=== PATIENT | male | born 1950 | race Caucasian/White ===

== ENCOUNTER 2017-12-29 11:06 | Observation (INO) | payer MEDICARE ==
[~2017-12-29] VITALS: Ht 177.8 cm; Wt 78.8 kg
[~2017-12-29 11:06] MED LIST: ASPI-496 PO; ATEN50TA41 PO; FLUO40CA2 PO; MELO7.5T31 PO; PANT40TA5 PO; PRAV40TA2 PO; TOPI50TA8 PO
[2017-12-29 11:56] LABS: BASOPHILS # (AUTO) 0.04 x10^3/uL (0-0.1); BASOPHILS % (AUTO) 0 % (0-1); EOSINOPHILS # (AUTO) 0.17 x10^3/uL (0-0.4); EOSINOPHILS % (AUTO) 2 % (1-7); LYMPHOCYTES # (AUTO) 3.13 x10^3/uL (1-3.4); LYMPHOCYTES % (AUTO) 36 % (22-44); MD NO; MEAN CORPUSCULAR HEMOGLOBIN 31.2 pg (27.5-34.5); MEAN CORPUSCULAR VOLUME 91.8 fL (81-97); MEAN PLATELET VOLUME 8.9 fL (7.4-10.4); MONOCYTES # (AUTO) 0.79 x10^3/uL (0.2-0.8); MONOCYTES % (AUTO) 9 % (2-9); NEUTROPHILS # (AUTO) 4.53 x10^3/uL (1.8-6.8); NEUTROPHILS % (AUTO) 52 % (42-75); PLATELET COUNT 184 x10^3/uL (130-400); RED BLOOD COUNT 5.05 x10^6/uL (4.38-5.82); RED CELL DISTRIBUTION WIDTH 14.3 % (9.4-14.8)
[2017-12-29] MEDS ORDERED: ASPIRIN 81 MG TABLET CHEW PO ONE (12:00)
[2017-12-29] MEDS ORDERED: SODIUM CHLORIDE FLUSH 10ML SYR IVF ONE (12:00)
[2017-12-29 12:08] LABS: ALANINE AMINOTRANSFERASE 35 U/L (12-78); ALBUMIN 3.8 g/dL (3.4-5.0); ANION GAP 6 mmol/L (5-15); CALCIUM 8.9 mg/dL (8.5-10.1); CHLORIDE 111 mmol/L (98-107); CREATININE 1.05 mg/dL (0.7-1.3)
[2017-12-29 12:12] LABS: ALKALINE PHOSPHATASE 107 U/L (45-117); BILIRUBIN,TOTAL 0.5 mg/dL (0.2-1.0); TOTAL PROTEIN 7.5 g/dL (6.4-8.2); TROPONIN I < 0.015 ng/mL (0.000-0.045)
[2017-12-29] MEDS ORDERED: ASPIRIN 81 MG TABLET CHEW ONE (12:30)
[2017-12-29] MEDS ORDERED: LABETALOL 5MG/ML, 20ML IVPush PRN (15:00)
[2017-12-29] MEDS ORDERED: NITROGLYCERIN 0.4 MG BOTTLE (25 TABS) SL PRN (15:00)
[2017-12-29] MEDS ORDERED: ONDANSETRON ODT 4 MG PO PRN (15:00)
[2017-12-29] MEDS ORDERED: ONDANSETRON 2MG/ML, 2ML IVPush PRN (15:00)
[2017-12-29] MEDS ORDERED: ENALAPRILAT 1.25 MG/ML, 2ML IVPush PRN (15:00)
[2017-12-29 17:41] VITALS: BP 129/78
[2017-12-29 18:54] LABS: TROPONIN I < 0.015 ng/mL (0.000-0.045)
[2017-12-29 19:11] VITALS: BP 128/71
[2017-12-29] MEDS: TOPIRAMATE 25 MG TABLET PO SCH (20:04)
[2017-12-29] MEDS: MELOXICAM 15 MG TABLET PO SCH (20:04)
[2017-12-29] MEDS ORDERED: PRAVASTATIN 40 MG TABLET PO SCH (21:00)
[2017-12-29 21:40] LABS: MICROSCOPIC AUTO
[2017-12-30 00:45] VITALS: BP 114/70
[2017-12-30 05:58] LABS: ALBUMIN 3.6 g/dL (3.4-5.0); ANION GAP 9 mmol/L (5-15); BASOPHILS # (AUTO) 0.02 x10^3/uL (0-0.1); BASOPHILS % (AUTO) 0 % (0-1); CALCIUM 9.4 mg/dL (8.5-10.1); CHLORIDE 114 mmol/L (98-107); EOSINOPHILS # (AUTO) 0.16 x10^3/uL (0-0.4); EOSINOPHILS % (AUTO) 2 % (1-7); LYMPHOCYTES # (AUTO) 2.67 x10^3/uL (1-3.4); LYMPHOCYTES % (AUTO) 34 % (22-44); MD NO; MEAN CORPUSCULAR VOLUME 91.3 fL (81-97); MEAN PLATELET VOLUME 9.1 fL (7.4-10.4); MONOCYTES # (AUTO) 0.63 x10^3/uL (0.2-0.8); MONOCYTES % (AUTO) 8 % (2-9); NEUTROPHILS # (AUTO) 4.42 x10^3/uL (1.8-6.8); NEUTROPHILS % (AUTO) 56 % (42-75); PLATELET COUNT 165 x10^3/uL (130-400); RED BLOOD COUNT 4.79 x10^6/uL (4.38-5.82); RED CELL DISTRIBUTION WIDTH 14.3 % (9.4-14.8)
[2017-12-30 06:02] LABS: CREATININE 1.08 mg/dL (0.7-1.3)
[2017-12-30 06:03] LABS: ALANINE AMINOTRANSFERASE 30 U/L (12-78); ALKALINE PHOSPHATASE 105 U/L (45-117); BILIRUBIN,TOTAL 0.4 mg/dL (0.2-1.0); CHOL/HDL RATIO 3.8; CHOLESTEROL, TOTAL 141 mg/dL (140-239); HDL CHOL % 26 % (26-37); HDL CHOLESTEROL (DIRECT) 37 mg/dL (40-60); LDL CHOLESTEROL,CALCULATED 45 mg/dL (54-169); LDL/HDL RATIO 1.2 (0.5-3.0); TOTAL PROTEIN 6.8 g/dL (6.4-8.2); TRIGLYCERIDES 294 mg/dL (50-200); VLDL CHOLESTEROL 59 mg/dL (0-25)
[2017-12-30 08:10] VITALS: BP 137/77
[2017-12-30] MEDS ORDERED: ASPIRIN 81 MG TABLET EC PO SCH (09:00)
[2017-12-30] MEDS ORDERED: ATENOLOL 50 MG TABLET PO SCH (09:00)
[2017-12-30] MEDS ORDERED: FLUOXETINE HCL 20 MG CAPSULE PO SCH (09:00)
[2017-12-30] MEDS ORDERED: PANTOPROZOLE 40MG TABLET PO SCH (09:00)
[2017-12-30] MEDS: TOPIRAMATE 25 MG TABLET PO SCH (10:34)
[2017-12-30] MEDS: MELOXICAM 15 MG TABLET PO SCH (10:34)
[2017-12-30 10:36] VITALS: BP 134/80
== END 2017-12-30 15:00 | disposition home or self-care (01) ==
LOC: ED 12:55 → UNDOADMIN 14:01 → EDIP 14:01 → INTOOBSV 14:01 → 5SO 17:26
PROVIDERS: ADMIT Hospitalist; ATTEND Hospitalist
DX: R00.2 Palpitations (principal); I10 Essential (primary) hypertension; E78.5 Hyperlipidemia, unspecified; E16.2 Hypoglycemia, unspecified; Z79.82 Long term (current) use of aspirin; Z87.442 Personal history of urinary calculi; Z87.891 Personal history of nicotine dependence
CPT/HCPCS: 36415; 71045; 78452; 80053; 80061; 81001; 83735; 83880; 84100; 84443; 84484; 85025; 85379; 93005; 93017; 99285; A9502; C9898; G0378

== ENCOUNTER → 2018-03-26 | Outpatient (CLI) | payer MEDICARE ==
[2018-03-26 11:44] LABS: BASOPHILS # (AUTO) 0.07 x10^3/uL (0-0.1); BASOPHILS % (AUTO) 1 % (0-1); EOSINOPHILS # (AUTO) 0.15 x10^3/uL (0-0.4); EOSINOPHILS % (AUTO) 2 % (1-7); LYMPHOCYTES # (AUTO) 3.29 x10^3/uL (1-3.4); LYMPHOCYTES % (AUTO) 37 % (22-44); MD NO; MEAN CORPUSCULAR HEMOGLOBIN 31.1 pg (27.5-34.5); MEAN CORPUSCULAR HGB CONC 33.7 g/dL (33.2-36.2); MEAN CORPUSCULAR VOLUME 92.3 fL (81-97); MEAN PLATELET VOLUME 8.7 fL (7.4-10.4); MONOCYTES # (AUTO) 0.56 x10^3/uL (0.2-0.8); MONOCYTES % (AUTO) 6 % (2-9); NEUTROPHILS # (AUTO) 4.83 x10^3/uL (1.8-6.8); NEUTROPHILS % (AUTO) 54 % (42-75); PLATELET COUNT 189 x10^3/uL (130-400); RED BLOOD COUNT 5.04 x10^6/uL (4.38-5.82); RED CELL DISTRIBUTION WIDTH 14.2 % (9.4-14.8)
[2018-03-26 11:51] LABS: INTERNATIONAL NORMALIZED RATIO 1.04 (0.93-1.1); PROTHROMBIN TIME 10.7 Seconds (9.6-11.5)
[2018-03-26 11:54] LABS: ALBUMIN 3.9 g/dL (3.4-5.0); ANION GAP 7 mmol/L (5-15); CHLORIDE 110 mmol/L (98-107)
[2018-03-26 11:59] LABS: ALANINE AMINOTRANSFERASE 32 U/L (12-78); ALKALINE PHOSPHATASE 118 U/L (45-117); BILIRUBIN,TOTAL 0.7 mg/dL (0.2-1.0); CREATININE 1.04 mg/dL (0.7-1.3); TOTAL PROTEIN 7.7 g/dL (6.4-8.2)
== END ==
LOC: STAR 10:25
PROVIDERS: ATTEND Neurological Surgery
DX: Z01.818 Encounter for other preprocedural examination (principal); R94.31 Abnormal electrocardiogram [ECG] [EKG]; M47.812 Spondylosis without myelopathy or radiculopathy, cervical region
CPT/HCPCS: 36415; 80053; 85025; 85610; 85730; 93005

== ENCOUNTER 2018-04-05 06:15 | Inpatient (IN) | payer MEDICARE ==
[2018-03-26 11:43] VITALS: BP 143/81
[~2018-04-05] VITALS: Ht 177.8 cm; Wt 80.0 kg
[2018-04-05] MEDS ORDERED: LACTATED RINGERS 1,000 ML IV SCH (06:54)
[2018-04-05] MEDS ORDERED: ACETAMINOPHEN 500 MG TABLET PO ONE (07:30)
[2018-04-05] MEDS ORDERED: GABAPENTIN 300 MG CAPSULE PO ONE (07:30)
[2018-04-05] MEDS ORDERED: OxyconTIN ER 10 MG TAB.ER PO ONE (07:30)
[2018-04-05] MEDS ORDERED: MIDAZOLAM 1 MG/ML, 2ML ONE (08:20)
[2018-04-05] MEDS ORDERED: FENTANYL PF 250 MCG/5ML ONE (08:20)
[2018-04-05] MEDS ORDERED: ROCURONIUM 10MG/ML,5ML ONE (08:21)
[2018-04-05] MEDS ORDERED: PROPOFOL 10 MG/ML, 20ML ONE (08:22)
[2018-04-05] MEDS ORDERED: CEFAZOLIN 1,000 MG ONE ×2 (08:23)
[2018-04-05] MEDS ORDERED: WATER-INJECTION,STERILE 10 ML IV ONE (08:23)
[2018-04-05] MEDS ORDERED: NEOSTIGMINE 1 MG/ML, 10ML ONE (09:02)
[2018-04-05] MEDS ORDERED: GLYCOPYRROLATE 0.4 MG/2 ML, 2ML ONE (09:03)
[2018-04-05] MEDS ORDERED: BACITRACIN 50,000 UNIT ONE (09:38)
[2018-04-05] MEDS ORDERED: THROMBIN 5,000 UNIT VIAL TP ONE (09:38)
[2018-04-05] MEDS ORDERED: EPINEPHRINE 1 MG/ML, 1ML ONE (09:38)
[2018-04-05] MEDS ORDERED: BUPIVACAINE 0.25% ONE (09:38)
[2018-04-05] MEDS ORDERED: BACITRACIN OINT 500U/GM, 15 GM ONE (09:38)
[2018-04-05] MEDS ORDERED: MORPHINE SULFATE 4 MG/ML, 1ML IVPush PRN (10:00)
[2018-04-05] MEDS ORDERED: PROMETHAZINE 12.5 MG SUPP PR PRN (10:00)
[2018-04-05] MEDS ORDERED: FENTANYL PF 100 MCG/2ML IV PRN (10:00)
[2018-04-05] MEDS ORDERED: PROMETHAZINE 25 MG SUPP PR PRN (10:00)
[2018-04-05] MEDS ORDERED: hydrALAzine 20 MG/ML, 1ML IV PRN (10:00)
[2018-04-05] MEDS ORDERED: LABETALOL 5MG/ML, 20ML IV PRN (10:00)
[2018-04-05] MEDS ORDERED: MEPERIDINE/PF 25MG/0.5ML IVPush PRN (10:00)
[2018-04-05] MEDS ORDERED: OXYcodone 5 MG/5 ML ORAL.SOL UDC PO PRN (10:00)
[2018-04-05] MEDS ORDERED: ONDANSETRON ODT 8 MG PO PRN (10:00)
[2018-04-05] MEDS ORDERED: HYDROmorphone 2 MG/ML, 1ML IV PRN (10:00)
[2018-04-05] MEDS ORDERED: PROMETHAZINE 25 MG/ML, 1ML IV PRN (10:00)
[2018-04-05] MEDS ORDERED: PHENYLEPHRINE 10 MG/ML ONE (10:16)
[2018-04-05] MEDS ORDERED: morphine SULFATE 10 MG/ML, 1ML IVPush PRN (10:30)
[2018-04-05] MEDS ORDERED: CEFAZOLIN 1,000 MG IV SCH (10:30)
[2018-04-05] MEDS ORDERED: PHARMACY MAY ADJ FOR RENAL FX MC PRN (10:30)
[2018-04-05] MEDS ORDERED: BUPIVACAINE/PF 0.25% INFIL ONE (11:07)
[2018-04-05] MEDS: DIAZEPAM 5 MG TABLET PO PRN ×2 (13:22→20:48)
[2018-04-05 13:57] VITALS: BP 142/80
[2018-04-05] MEDS: OXYcodone/APAP 5/325MG TABLET PO PRN ×3 (15:05→23:27)
[2018-04-05] MEDS: NS + 20MEQ KCL 1,000 ML IV SCH (15:56)
[2018-04-05] MEDS: CEFAZOLIN PMX 1GM/50ML 50 ML IVPB SCH ×2 (15:56→23:30)
[2018-04-05 19:03] VITALS: BP 142/86
[2018-04-05] MEDS: TOPIRAMATE 25 MG TABLET PO SCH (20:46)
[2018-04-05] MEDS ORDERED: PRAVASTATIN 40 MG TABLET PO SCH (21:00)
[2018-04-06 01:01] VITALS: BP 145/84
[2018-04-06] MEDS: OXYcodone/APAP 5/325MG TABLET PO PRN ×2 (04:12→08:21)
[2018-04-06 04:19] VITALS: BP 128/75
[2018-04-06] MEDS: NS + 20MEQ KCL 1,000 ML IV SCH (06:00)
[2018-04-06 07:56] VITALS: BP 132/76
[2018-04-06] MEDS: CEFAZOLIN PMX 1GM/50ML 50 ML IVPB SCH (08:21)
[2018-04-06] MEDS: TOPIRAMATE 25 MG TABLET PO SCH (08:22)
[2018-04-06] MEDS ORDERED: TIZA4TAB9 PO (08:34)
[2018-04-06] MEDS ORDERED: OXYC-302 PO (08:34)
[2018-04-06] MEDS ORDERED: PANTOPROZOLE 40MG TABLET PO SCH (09:00)
[2018-04-06] MEDS ORDERED: FLUOXETINE HCL 20 MG CAPSULE PO SCH (09:00)
[2018-04-06] MEDS ORDERED: ATENOLOL 50 MG TABLET PO SCH (09:00)
== END 2018-04-06 10:32 | disposition home or self-care (01) | DRG 472 ==
LOC: OUT 06:15 → ORIP 10:04 → 4NOR 13:23 → DCLOUNGE 04-06 10:14
PROVIDERS: ADMIT Neurological Surgery; ATTEND Neurological Surgery
PROC: 0RB30ZZ Excision of Cervical Vertebral Disc, Open Approach (ICD-10-PCS; 2018-04-05)
PROC: BR161ZZ Fluoroscopy of Lumbar Facet Joint(s) using Low Osmolar Contrast (ICD-10-PCS; 2018-04-05)
PROC: 0RG20A0 Fusion of 2 or more Cervical Vertebral Joints with Interbody Fusion Device, Anterior Approach, Anterior Column, Open Approach (ICD-10-PCS; principal; 2018-04-05 09:00)
DX: M47.22 Other spondylosis with radiculopathy, cervical region (principal); M50.022 Cervical disc disorder at C5-C6 level with myelopathy; M47.12 Other spondylosis with myelopathy, cervical region; M48.02 Spinal stenosis, cervical region; M50.221 Other cervical disc displacement at C4-C5 level; I10 Essential (primary) hypertension; Z87.891 Personal history of nicotine dependence; Z88.1 Allergy status to other antibiotic agents
CPT/HCPCS: 36415; 72040; 86850; 86900; C1713; C1776; J0171; J0690; J2250; J2704; J2710; J3010; J3480; J3490; C1762; J2270; J2370; J7120

== ENCOUNTER 2018-11-12 07:51 | Observation (INO) | payer MEDICARE ==
[~2018-11-12] VITALS: Ht 177.8 cm; Wt 79.5 kg
[~2018-11-12 07:51] MED LIST changes: +OXYC-302 PO; +TIZA4TAB9 PO
[2018-11-12 08:47] LABS: BASOPHILS # (AUTO) 0.06 x10^3/uL (0-0.1); BASOPHILS % (AUTO) 1 % (0-1); EOSINOPHILS # (AUTO) 0.11 x10^3/uL (0-0.4); EOSINOPHILS % (AUTO) 2 % (1-7); LYMPHOCYTES # (AUTO) 2.21 x10^3/uL (1-3.4); LYMPHOCYTES % (AUTO) 31 % (22-44); MD NO; MEAN CORPUSCULAR HEMOGLOBIN 32.2 pg (27.5-34.5); MEAN CORPUSCULAR HGB CONC 33.9 g/dL (33.2-36.2); MEAN PLATELET VOLUME 8.7 fL (7.4-10.4); MONOCYTES # (AUTO) 0.62 x10^3/uL (0.2-0.8); MONOCYTES % (AUTO) 9 % (2-9); NEUTROPHILS # (AUTO) 4.23 x10^3/uL (1.8-6.8); NEUTROPHILS % (AUTO) 58 % (42-75); PLATELET COUNT 188 x10^3/uL (130-400); RED BLOOD COUNT 5.01 x10^6/uL (4.38-5.82); RED CELL DISTRIBUTION WIDTH 13.1 % (9.4-14.8)
--- NOTE | 2018-11-12 08:52 | NUR ---
CHLOE RN NOTE: PATIENT BACK FROM [facility]. FAMILY AT
[2018-11-12 08:59] LABS: ANION GAP 7 mmol/L (5-15); CALCIUM 9.6 mg/dL (8.5-10.1); CHLORIDE 108 mmol/L (98-107); CREATININE 0.96 mg/dL (0.7-1.3)
[2018-11-12 09:02] LABS: TROPONIN I < 0.015 ng/mL (0.000-0.045)
[2018-11-12] MEDS ORDERED: SODIUM CHLORIDE 0.9% 1,000 ML IV ONE (09:58)
[2018-11-12] MEDS ORDERED: METOCLOPRAMIDE 5 MG/ML, 2ML IVPush ONE (10:00)
[2018-11-12] MEDS ORDERED: DIPHENHYDRAMINE 50 MG/ML, 1ML IVPush ONE (10:00)
[2018-11-12] MEDS ORDERED: SODIUM CHLORIDE FLUSH 10ML SYR IVF PRN (10:00)
[2018-11-12] MEDS ORDERED: KETOROLAC 30 MG/1 ML IVPush ONE (10:00)
[2018-11-12] MEDS ORDERED: KETOROLAC 30 MG/1 ML ONE (10:06)
[2018-11-12] MEDS ORDERED: DIPHENHYDRAMINE 50 MG/ML, 1ML ONE (10:06)
[2018-11-12] MEDS ORDERED: METOCLOPRAMIDE 5 MG/ML, 2ML ONE (10:06)
--- NOTE | 2018-11-12 10:21 | NUR ---
PT RESTING IN BED. ALL IMAGING RESULTS BACK. PT MEDICATED PER ORDER.
[2018-11-12] MEDS ORDERED: PANTOPROZOLE 40MG TABLET PO SCH ×2 (11:00→12:05)
[2018-11-12] MEDS ORDERED: ONDANSETRON 2MG/ML, 2ML IVPush PRN (11:00)
[2018-11-12] MEDS ORDERED: ONDANSETRON 4 MG TABLET PO PRN (11:00)
[2018-11-12 12:17] VITALS: BP 148/81
[2018-11-12] MEDS: POTASSIUM CHLORIDE 20 MEQ in SODIUM CHLORIDE 0.9% 1,000 ML IV SCH (13:01)
[2018-11-12 13:51] VITALS: BP 148/81
[2018-11-12 15:16] LABS: TROPONIN I < 0.015 ng/mL (0.000-0.045)
[2018-11-12] MEDS: ACETAMINOPHEN 325 MG TABLET PO PRN ×2 (15:39→20:30)
[2018-11-12] MEDS: FLUOXETINE HCL 20 MG CAPSULE PO SCH (15:39)
[2018-11-12] MEDS: ASPIRIN 81 MG TABLET CHEW PO/NG SCH (15:39)
[2018-11-12 18:50] VITALS: BP 141/70
[2018-11-12] MEDS ORDERED: ATORVASTATIN 40 MG TABLET PO SCH (21:00)
[2018-11-13 01:23] VITALS: BP 116/67
[2018-11-13] MEDS: POTASSIUM CHLORIDE 20 MEQ in SODIUM CHLORIDE 0.9% 1,000 ML IV SCH (04:00)
[2018-11-13 05:47] LABS: CHOL/HDL RATIO 3.5; LDL/HDL RATIO 0.9 (0.5-3.0)
[2018-11-13 06:59] VITALS: BP 169/91
[2018-11-13] MEDS: ASPIRIN 81 MG TABLET CHEW PO/NG SCH (07:54)
[2018-11-13] MEDS: FLUOXETINE HCL 20 MG CAPSULE PO SCH (07:54)
[2018-11-13] MEDS: ACETAMINOPHEN 325 MG TABLET PO PRN (08:04)
[2018-11-13] MEDS ORDERED: AMLODIPINE 5 MG TABLET PO SCH (09:00)
[2018-11-13] MEDS ORDERED: PROP20TA PO ×2 (09:47)
[2018-11-13 10:04] VITALS: BP 146/85
[2018-11-13] MEDS ORDERED: AMLO-150 PO (10:04)
== END 2018-11-13 13:00 | disposition home or self-care (01) ==
LOC: ED 09:55 → INTOOBSV 09:58 → EDIP 09:58 → 4WST 11:40 → DCLOUNGE 11-13 12:48
PROVIDERS: ADMIT Hospitalist; ATTEND Hospitalist
DX: R27.0 Ataxia, unspecified (principal); R07.89 Other chest pain; E78.5 Hyperlipidemia, unspecified; I10 Essential (primary) hypertension; G43.109 Migraine with aura, not intractable, without status migrainosus; R55 Syncope and collapse; K22.70 Barrett's esophagus without dysplasia; Z87.442 Personal history of urinary calculi; Z98.1 Arthrodesis status
CPT/HCPCS: 36415; 70450; 70551; 71045; 80048; 80061; 82040; 84484; 85025; 92610; 93005; 93306; 93880; 95816; 96361; 96374; 96375; 97162; 97166; 99284; G0378; J1200; J1885; J2765; J3480; J7030; 99285